=== PATIENT | male | born 1990 | race Caucasian/White ===

== ENCOUNTER 2022-11-01 23:43 | Emergency (ER) | payer BC, SELFPAY ==
--- OUTSIDE RECORDS SUMMARY | 2022-11-01 23:50 | XMS REPORT | Continuity of Care Document ---
:[address] [facility] t Address [address] [place] [id number] Care Team Providers Name Role Phone Arron Bull Attending Clinician Unavailable Problems This patient has no known problems. Allergies, Adverse Reactions, Alerts This patient has no known allergies or adverse reactions. Medications This patient has no known medications. Procedures This patient has no known procedures. Encounters Start End Encounter Admission Attending Care Care Encounter Source Date/Time Date/Time Type Type Clinicians Facility Department ID 2022-08-05 Outpatient Bull, [facility] [id number] Common 11:44:03 Arron [facility] 2022-08-04 Outpatient Bull, [facility] [id number] Common 09:28:04 Arron [facility] 2022-06-06 Outpatient Bull, [facility] [id number] Common 08:49:03 Arron [facility] Results This patient has no known results.
[2022-11-02 01:00] LABS: SARS-COV-2 RT PCR NEGATIVE (NEGATIVE)
[2022-11-02 01:24] LABS: Urine Blood Negative (Negative); Urine Glucose Negative (Negative); Urine Protein Negative (Negative); Urine Specific Gravity 1.025 (1.005-1.030)
[2022-11-02 01:25] LABS: Absolute Lymphocytes (CBC) 2.8 K/uL (0.7-4.9); Hematocrit 41.6 % (39.6-49.0); Lymphocytes % 23.6 % (15.3-44.8); MCV 87.8 fL (80-100); MPV 7.8 fL (7.6-11.3); RBC Red Blood Cell Count 4.74 M/uL (4.33-5.43)
[2022-11-02 01:31] LABS: Protime INR 0.97
[2022-11-02 01:54] LABS: ALT/SGPT 57 U/L (16-61); AST/SGOT 25 U/L (15-37); Albumin 3.7 g/dL (3.4-5.0); Alkaline Phosphatase 87 U/L (45-117); BUN Blood Urea Nitrogen 10 mg/dL (7-18); Barbiturates NEGATIVE (NEGATIVE); Benzodiazepines NEGATIVE (NEGATIVE); Bicarbonate 28 mEq/L (21-32); Bilirubin Direct < 0.1 mg/dL (0-0.2); Bilirubin Total 0.3 mg/dL (0.2-1.0); Cocaine POSITIVE (NEGATIVE); Glomerular Filtration Rate 117 ml/min (=/>90); Glucose Level 109 mg/dL (74-106); METHAMPHETAM POSITIVE (NEGATIVE); Methadone NEGATIVE (NEGATIVE); Opiates NEGATIVE (NEGATIVE); Phencyclidine NEGATIVE (NEGATIVE); Potassium 3.5 mEq/L (3.5-5.1); Protein, Total 7.1 g/dL (6.4-8.2); Sodium Level 137 mEq/L (136-145); THC Cannibis NEGATIVE (NEGATIVE)
[2022-11-02] MEDS ORDERED: NA CHLORIDE 0.9% 1,000 ML ONE (02:26)
--- NOTE | 2022-11-02 03:21 | EDPHYS ---
Physician Documentation [facility] Name: Graham Bolaños Age: 32 yrs Sex: Male : 1990 Arrival Date: 11/01/2022 Time: 23:54 Bed 8 Private MD: ED Physician Eladio Boyd HPI: 11/02 00:10 This 32 yrs old Male presents to ER via EMS with complaints of Altered Mental Status. cp 00:10 The patient presents with confusion. cp 00:10 Onset: The symptoms/episode began/occurred at an unknown time. cp 00:10 Possible causes: drug use, amphetamines, reports last use was 2 days ago, prescribed cp medication Abilify. Associated signs and symptoms: Pertinent positives: cough, Pertinent negatives: abdominal pain, agitation, chest pain, combativeness, diaphoresis, headache, fever, homicidal ideation, suicidal ideation. Historical: - Allergies: 00:05 No Known Allergies; jb4 - Home Meds: 00:05 Abilify oral [Active]; jb4 - PMHx: 00:05 Schizophrenia; jb4 - Immunization history:: Adult Immunizations unknown. - Social history:: Smoking status: Patient denies any tobacco usage or history of. Patient uses alcohol, street drugs, Methamphetamine (Meth). ROS: 00:15 Constitutional: Negative for body aches, chills, fever, poor PO intake. cp 00:15 Eyes: Negative for injury, pain, redness, and discharge. cp 00:15 ENT: Negative for drainage from ear(s), ear pain, sore throat, difficulty swallowing, difficulty handling secretions. 00:15 Cardiovascular: Negative for chest pain, edema, palpitations. 00:15 Respiratory: Positive for cough, "sounds productive", Negative for shortness of breath, wheezing. 00:15 Abdomen/GI: Negative for abdominal pain, vomiting, diarrhea, constipation. Exam: 00:20 Constitutional: The patient appears in no acute distress, alert, awake, cp non-diaphoretic, non-toxic, well developed, well nourished, obese. 00:20 Head/Face: Normocephalic, atraumatic. cp 00:20 Eyes: Periorbital structures: appear normal, Pupils: equal, round, and reactive to light and accomodation, Extraocular movements: intact throughout, Conjunctiva: normal, no exudate, no injection, Sclera: no appreciated abnormality, Lids and lashes: appear normal, bilaterally. 00:20 ENT: External ear(s): are unremarkable, Ear canal(s): are normal, clear, TM's: dullness, bilaterally, Nose: is normal, Mouth: Lips: moist, Oral mucosa: moist, Posterior pharynx: is normal, airway is patent, no erythema, no exudate. 00:20 Neck: C-spine: vertebral tenderness, is not appreciated, crepitus, is not appreciated, ROM/movement: is normal, is supple, without pain, no range of motions limitations, no nuchal rigidity. 00:20 Chest/axilla: Inspection: normal. 00:20 Cardiovascular: Rate: tachycardic, Rhythm: regular. 00:45 ECG was reviewed by the Attending Physician. Vital Signs: 00:02 BP 118 / 69; Pulse 100; Resp 16; Temp 98.7(O); Pulse Ox 98% on R/A; Weight 139.71 kg jb4 (M); Height 6 ft. 0 in. (R); 02:08 BP 130 / 74; Pulse 107; Resp 16; Pulse Ox 99% on R/A; jb4 03:16 BP 108 / 58; Pulse 94; Resp 16; Pulse Ox 95% on R/A; jb4 00:02 Body Mass Index 41.77 (139.71 kg, 182.88 cm) 4 MDM: 11/01 23:55 Patient medically screened. 11/02 00:04 Order name: EKG; Complete Time: 00:05 11/02 00:04 Order name: Suicide Screening ([place]); Complete Time: 00:09 11/02 00:04 Order name: XRAY Chest (1 view) 11/02 00:04 Order name: EKG - Nurse/Tech; Complete Time: 00:47 11/02 00:05 Order name: CT Head Brain wo Cont 11/02 00:04 Order name: IV Saline Lock; Complete Time: 01:24 11/02 00:04 Order name: Labs collected and sent; Complete Time: 01:24 11/02 00:04 Order name: Urine Dipstick-Ancillary (obtain specimen); Complete Time: 01:24 11/02 00:04 Order name: Acetaminophen; Complete Time: :55 cp 11/02 00:04 Order name: ETOH Level; Complete Time: :55 cp 11/02 00:04 Order name: Hepatic Function; Complete Time: :55 cp 11/02 00:04 Order name: PT-INR; Complete Time: :55 cp 11/02 00:04 Order name: Ptt, Activated; Complete Time: :55 cp 11/02 00:04 Order name: Salicylate; Complete Time: :55 cp 11/02 00:04 Order name: COVID-19/FLU A+B; Complete Time: :55 cp 11/02 00:04 Order name: Basic Metabolic Panel; Complete Time: :55 cp 11/02 01:55 Interpretation: Normal except: GLUC 109. cp 11/02 00:04 Order name: CBC with Diff; Complete Time: :55 cp 11/02 01:55 Interpretation: Normal except: WBC 11.90. cp 11/02 00:04 Order name: Urine Drug Screen; Complete Time: :55 cp 11/02 01:55 Interpretation: Normal except: KALEB POSITIVE; METHAMPHETAMINE POSITIVE. cp 11/02 01:25 Order name: Urine Dipstick-Ancillary; Complete Time: :55 EDMS EC/19 00:45 Rate is 93 beats/min. Rhythm is regular. NE interval is normal. QRS interval is normal. cp QT interval is normal. T waves are Inverted in lead aVR. Interpreted by me. Reviewed by me. Administered Medications: 02:15 Drug: NS 0.9% IV 1000 ml Route: IV; Rate: 1 bolus; Site: right hand; jb4 Disposition Summary: 11/02/22 03:20 Discharge Ordered Location: Home ms3 Condition: Stable ms3 Diagnosis - Methamphetamine abuse ms3 - Cocaine abuse ms3 Followup: ms3 - With: Arron Bull DO - When: 2 - 3 days - Reason: Recheck today's complaints Forms: - Medication Reconciliation Form ms3 - Thank You Letter ms3 - Antibiotic Education ms3 - Prescription Opioid Use ms3 Signatures: Dispatcher [employer] EDMS David Roy PA PA cp Bryson, James, RN RN jb4 Eladio Boyd DO DO ms3 Corrections: (The following items were deleted from the chart) 03:21 03:20 Hypokalemia ms3 ms3
--- NOTE | 2022-11-02 03:21 | ER ---
Nurse's Notes [facility] Name: Graham Bolaños Age: 32 yrs Sex: Male : 1990 Arrival Date: 11/01/2022 Time: 23:54 Bed 8 Private MD: Diagnosis: Methamphetamine abuse;Cocaine abuse Presentation: 11/02 00:02 Chief complaint: EMS states: Pt was found wandering around the neighbor ann. Initially jb4 they called for SOB. Upon EMS arrival the pt reported being Schizophrenic and being on Abilify which causes him to have hallucinations. The pt reports wanting to come to the hospital to get his medications changed. Coronavirus screen: At this time, the client does not indicate any symptoms associated with coronavirus-19. Ebola Screen: No symptoms or risks identified at this time. Initial Sepsis Screen: Does the patient meet any 2 criteria? HR > 90 bpm. Yes Does the patient have a suspected source of infection? No. Patient's initial sepsis screen is negative. Risk Assessment: Do you want to hurt yourself or someone else? Patient reports no desire to harm self or others. Onset of symptoms was November 02, 2022. Transition of care: patient was not received from another setting of care. 00:02 Method Of Arrival: EMS: [facility] jb4 00:02 Acuity: [place] 2 jb4 Historical: - Allergies: 00:05 No Known Allergies; jb4 - Home Meds: 00:05 Abilify oral [Active]; jb4 - PMHx: 00:05 Schizophrenia; jb4 - Immunization history:: Adult Immunizations unknown. - Social history:: Smoking status: Patient denies any tobacco usage or history of. Patient uses alcohol, street drugs, Methamphetamine (Meth). Screenin:07 [facility] ED Fall Risk Assessment (Adult) History of falling in the last 3 months, jb4 including since admission No falls in past 3 months (0 pts) Confusion or Disorientation No (0 pts). Abuse screen: Denies threats or abuse. Nutritional screening: No deficits noted. Tuberculosis screening: No symptoms or risk factors identified. Assessment: 00:07 General: Appears in no apparent distress. comfortable, Behavior is calm, cooperative, jb4 appropriate for age. Pain: Denies pain. Neuro: Level of Consciousness is awake, alert, obeys commands, Oriented to person, place, time, situation. Cardiovascular: Patient's skin is warm and dry. Respiratory: Airway is patent Respiratory effort is even, unlabored, Respiratory pattern is regular, symmetrical. GI: No signs and/or symptoms were reported involving the gastrointestinal system. : No signs and/or symptoms were reported regarding the genitourinary system. EENT: No signs and/or symptoms were reported regarding the EENT system. Derm: Skin is intact, Skin is pink, warm \T\ dry. Musculoskeletal: Circulation, motion, and sensation intact. Range of motion: intact in all extremities. 01:39 Reassessment: Patient appears in no apparent distress at this time. Patient and/or jb4 family updated on plan of care and expected duration. Pain level reassessed. Patient is alert, oriented x 3, equal unlabored respirations, skin warm/dry/pink. 02:30 Reassessment: Patient appears in no apparent distress at this time. Patient and/or jb4 family updated on plan of care and expected duration. Pain level reassessed. Patient is alert, oriented x 3, equal unlabored respirations, skin warm/dry/pink. 03:16 Reassessment: Patient appears in no apparent distress at this time. Patient and/or jb4 family updated on plan of care and expected duration. Pain level reassessed. Patient is alert, oriented x 3, equal unlabored respirations, skin warm/dry/pink. Vital Signs: 00:02 BP 118 / 69; Pulse 100; Resp 16; Temp 98.7(O); Pulse Ox 98% on R/A; Weight 139.71 kg jb4 (M); Height 6 ft. 0 in. (R); 02:08 BP 130 / 74; Pulse 107; Resp 16; Pulse Ox 99% on R/A; jb4 03:16 BP 108 / 58; Pulse 94; Resp 16; Pulse Ox 95% on R/A; jb4 00:02 Body Mass Index 41.77 (139.71 kg, 182.88 cm) [facility] ED Course: 11/01 23:54 Patient arrived in ED. jb4 23:55 David Roy PA is PHCP. cp 23:55 Eladio Boyd DO is Attending Physician. cp 11/02 00:05 Triage completed. jb4 00:05 Arm band placed on right wrist. jb4 00:22 COVID-19/FLU A+B Sent. jb4 00:41 XRAY Chest (1 view) In Process Unspecified. EDMS 01:10 CT Head Brain wo Cont In Process Unspecified. EDMS 01:24 Acetaminophen Sent. jb4 01:24 Basic Metabolic Panel Sent. jb4 01:24 CBC with Diff Sent. jb4 01:24 ETOH Level Sent. jb4 01:24 Hepatic Function Sent. jb4 01:24 PT-INR Sent. jb4 01:24 Ptt, Activated Sent. jb4 01:24 Salicylate Sent. jb4 01:24 Urine Drug Screen Sent. jb4 01:39 Rolando Rodriguez, RN is Primary Nurse. jb4 03:19 Arron Bull DO is Referral Physician. ms3 Administered Medications: 02:15 Drug: NS 0.9% IV 1000 ml Route: IV; Rate: 1 bolus; Site: right hand; jb4 Outcome: 03:20 Discharge ordered by . ms3 Signatures: Dispatcher [employer] EDMS David Roy PA PA cp Bryson, James, RN RN jb4 Eladio Boyd DO DO ms3
--- NOTE | 2022-11-03 14:22 | RAD REPORT ---
EXAM DESCRIPTION: CT - Head Brain Wo Cont - 11/02/2022 6:24 am CLINICAL HISTORY: Confusion. TECHNIQUE: 5 mm axial images of the intracranial structures were obtained without intravenous contra st. Coronal and sagittal reformatted images were obtained. COMPARISON: None. DOSE OPTIMIZATION: This facility uses dose optimization techniques as appropriate to perform exams, including at least one of the following techniques: 1. Automated exposure control. 2. Adjustment of the mA and/or kV according to patient size (this includes techniques or standardized protocols for targeted exams where dose is matched to the indication/reason for exam, i.e. extremiti es or head). 3. Use of iterative reconstructive technique. FINDINGS: There is a moderate-sized scalp hematoma along the external convexity of the parietal bone s posteriorly and superiorly. There is no associated calvarial fracture. No abnormal acute extracerebral fluid collections are demonstrated. The cortical sulci, ventricles, and cisterns are within normal limits. There are no areas of altered attenuation to suggest acute hemorrhage, acute infarct, or mass lesio n. The visualized portions of the paranasal sinuses and mastoid air cells are clear. IMPRESSION: 1. Moderate-sized scalp hematoma along the parietal bones posteriorly and superiorly. 2. No acute intracranial abnormalities. Electronically signed by: Donte Escobar MD 11/02/2022 1:20 AM CDT Due to temporary technical issues with the PACS/Fluency reporting system, reports are being signed by the in house radiologists without review as a courtesy to insure prompt reporting. The interpreting radiologist is fully responsible for the content of the report.
--- NOTE | 2022-11-03 14:29 | RAD REPORT ---
EXAM DESCRIPTION: RAD - Chest Single View - 11/02/2022 12:39 am CLINICAL HISTORY: Cough. TECHNIQUE: AP portable chest x-ray upright on 11/02/2022, at 00: 34. COMPARISON: None. FINDINGS: Heart: Normal size and configuration. Mediastinal Structures: Normal and midline.. Lung [place]: No active disease. Pulmonary Vascularity: Normal. Pleural Space: No active disease. Bony Structures: Normal. IMPRESSION: Normal study. Electronically signed by: Donte Escobar MD 11/02/2022 12:51 AM CDT Due to temporary technical issues with the PACS/Fluency reporting system, reports are being signed by the in house radiologists without review as a courtesy to insure prompt reporting. The interpreting radiologist is fully responsible for the content of the report.
--- NOTE | 2022-11-03 17:38 | EKG ---
Test Date: 2022-11-02 Test Time: 00:41:17 Deck Steward: LUISITO MEASUREMENT RESULTS: Intervals: Rate: 93 DE: 132 QRSD: 88 QT: 352 QTc: 437 [place]: P: 58 DE: 132 QRS: 73 T: 47 INTERPRETIVE STATEMENTS: Normal sinus rhythm Normal ECG Compared to ECG 05/12/2013 17:18:56 Sinus tachycardia no longer present Electronically Signed On 11-03-22 17:35:44 CDT by Stanley Jade
== END 2022-11-02 03:43 | disposition home or self-care (01) ==
LOC: ER 23:43
DX: F15.10 Other stimulant abuse, uncomplicated (principal); F14.10 Cocaine abuse, uncomplicated; R41.82 Altered mental status, unspecified; R41.0 Disorientation, unspecified; R05.9 Cough, unspecified; F20.9 Schizophrenia, unspecified; Z20.822 Contact with and (suspected) exposure to COVID-19
CPT/HCPCS: 0240U; 36415; 70450; 71045; 80048; 80076; 80307; 81003; 85025; 85610; 85730; 93005; G0480; J7030

== ENCOUNTER 2022-11-03 12:09 | Emergency (ER) | payer SELFPAY ==
--- OUTSIDE RECORDS SUMMARY | 2022-11-03 12:12 | XMS REPORT | Continuity of Care Document ---
:1990 Author Organization [facility] t Address [address] [facility] [address] [place] [id number] Care Team Providers Name Role Phone Arron [...] Clinicians Facility Department ID 2022-08-05 Outpatient Bull, [facility] [id number] Common 11:44:03 [facility] 2022-08-04 Outpatient Jorgito [facility] [id number] Common 09:28:04 Arron [facility] 2022-06-06 Outpatient Bull [facility] [id number] Common 08:49:03 [facility] Results This patient has no known results.
[2022-11-03 13:16] LABS: Absolute Lymphocytes (CBC) 2.8 K/uL (0.7-4.9); Hematocrit 42.2 % (39.6-49.0); Lymphocytes % 29.2 % (15.3-44.8); MCV 89.6 fL (80-100); MPV 8.4 fL (7.6-11.3)
--- NOTE | 2022-11-03 13:54 | RAD REPORT ---
EXAM DESCRIPTION: Ferny Single View11/03/2022 1:45 pm CLINICAL HISTORY: Chest pain COMPARISON: November 02, 2022 FINDINGS: The lungs appear clear of acute infiltrate. The heart is normal size IMPRESSION: No acute abnormalities displayed
[2022-11-03 13:55] LABS: ALT/SGPT 67 U/L (16-61); AST/SGOT 40 U/L (15-37); Albumin 3.8 g/dL (3.4-5.0); Alkaline Phosphatase 76 U/L (45-117); BUN Blood Urea Nitrogen 7 mg/dL (7-18); Bicarbonate 23 mEq/L (21-32); Bilirubin Total 0.4 mg/dL (0.2-1.0); Glomerular Filtration Rate 122 ml/min (=/>90); Glucose Level 97 mg/dL (74-106); Magnesium 2.5 mg/dL (1.6-2.4); NT PRO-BNP 95 pg/mL (<125); Potassium 3.9 mEq/L (3.5-5.1); Protein, Total 7.3 g/dL (6.4-8.2); Sodium Level 136 mEq/L (136-145); Troponin High Sensitivity 4.8 pg/mL (<58.9)
[2022-11-03 13:55] LABS: Protime INR 1.05
[2022-11-03 13:56] LABS: Bilirubin Direct < 0.1 mg/dL (0-0.2)
--- NOTE | 2022-11-03 14:23 | ER ---
Nurse's Notes [facility] Name: Graham Bolaños Age: 32 yrs Sex: Male : 1990 Arrival Date: 11/03/2022 Time: 12:11 Bed 3 Private MD: Diagnosis: Bipolar disorder, unspecified;Palpitations;Schizophrenia, unspecified Presentation: 11/03 12:44 Chief complaint: Patient states: Palpitations, CP, and anxiety that began this morning. vg1 Pt denies NV, pt appears to be drowsy. Coronavirus screen: Vaccine status: Patient reports receiving the 2nd dose of the covid vaccine. Client denies travel out of the [place] in the last 14 days. Ebola Screen: Patient negative for fever greater than or equal to 101.5 degrees Fahrenheit, and additional compatible Ebola Virus Disease symptoms Patient denies exposure to infectious person. Patient denies travel to an Ebola-affected area in the 21 days before illness onset. Initial Sepsis Screen: Does the patient meet any 2 criteria? No. Patient's initial sepsis screen is negative. Does the patient have a suspected source of infection? No. Patient's initial sepsis screen is negative. Risk Assessment: Do you want to hurt yourself or someone else? Patient reports no desire to harm self or others. Onset of symptoms was November 03, 2022. 12:44 Method Of Arrival: EMS: [facility] vg1 12:44 Acuity: [place] 3 vg1 Triage Assessment: 12:46 General: Appears in no apparent distress. uncomfortable, Behavior is cooperative, vg1 drowsy. Pain: Complains of pain in chest Pain does not radiate. Pain currently is 5 out of 10 on a pain scale. Pain began this morning. EENT: No signs and/or symptoms were reported regarding the EENT system. Neuro: Level of Consciousness is awake, alert, obeys commands, Oriented to person, place, time, situation. Cardiovascular: Patient's skin is warm and dry. Respiratory: Airway is patent Respiratory effort is even, unlabored. GI: No signs and/or symptoms were reported involving the gastrointestinal system. : No signs and/or symptoms were reported regarding the genitourinary system. Derm: Skin is pink, warm \T\ dry. Musculoskeletal: Circulation, motion, and sensation intact. Historical: - Allergies: 12:46 No Known Allergies; vg1 - Home Meds: 12:46 Abilify oral [Active]; Hydroxyzine Oral [Active]; vg1 - PMHx: 12:46 Schizophrenia; Anxiety; vg1 - Immunization history:: Client reports receiving the 2nd dose of the Covid vaccine. - Social history:: Smoking status: Patient reports the use of cigarette tobacco products, smokes one pack cigarettes per day. Patient uses alcohol, on a daily basis. street drugs, Methamphetamine (Meth). - Family history:: not pertinent. Screenin:49 [facility] ED Fall Risk Assessment (Adult) History of falling in the last 3 months, vg1 including since admission No falls in past 3 months (0 pts) Confusion or Disorientation No (0 pts) Intoxicated or Sedated No (0 pts) Impaired Gait No (0 pts) Mobility Assist Device Used No (0 pt) Altered Elimination No (0 pt) Score/Fall Risk Level 0 - 2 = Low Risk Oriented to surroundings, Maintained a safe environment, Educated pt \T\ family on fall prevention, incl call for assistance when getting out of bed, Assessed \T\ reinforced patient's understanding of fall precautions. Abuse screen: Denies threats or abuse. Denies injuries from another. Nutritional screening: No deficits noted. Tuberculosis screening: No symptoms or risk factors identified. Assessment: 12:49 Reassessment: SEE TRIAGE. vg1 12:50 Reassessment: [facility] CARLOS CARROLL AT BEDSIDE. vg1 14:01 Reassessment: Patient appears in no apparent distress at this time. No changes from vg1 previously documented assessment. Patient and/or family updated on plan of care and expected duration. Pain level reassessed. Patient is alert, oriented x 3, equal unlabored respirations, skin warm/dry/pink. Vital Signs: 12:44 BP 129 / 63; Pulse 80; Resp 18; Temp 98.4(O); Pulse Ox 95% on R/A; Weight 147.42 kg; vg1 Height 6 ft. 1 in. ; 13:30 BP 113 / 64; Pulse 80; Resp 18; Pulse Ox 97% on R/A; vg1 12:44 Body Mass Index 42.88 (147.42 kg, 185.42 cm) vg1 ED Course: 12:11 Patient arrived in ED. [facility] 12:11 David Whittaker MD is Attending Physician. [facility] 12:20 Sylvia Del Rosario, RN is Primary Nurse. vg1 12:46 Triage completed. vg1 12:46 Arm band placed on. vg1 12:49 Patient has correct armband on for positive identification. Bed in low position. Call vg1 light in reach. Side rails up X2. [place] [employer] AT BEDSIDE. 12:49 No provider procedures requiring assistance completed. vg1 13:17 Inserted saline lock: 22 gauge in right hand, using aseptic technique. Blood collected. vg1 13:47 XRAY Chest (1 view) In Process Unspecified. EDMS 14:22 Ilya Juan MD is Referral Physician. [facility] 14:34 IV discontinued. mb9 Administered Medications: 14:27 Not Given (Physician Discretion): Ativan IVP 1 mg IVP once mb9 14:28 Not Given (Physician Discretion): Ativan IVP 1 mg IVP once mb9 Outcome: 14:22 Discharge ordered by . [facility] 14:34 Discharged to Law Enforcement mb9 14:34 Condition: stable 14:34 Discharge instructions given to patient, Instructed on discharge instructions, follow up and referral plans. Demonstrated understanding of instructions, follow-up care. 14:35 Patient left the ED. mb9 Signatures: Dispatcher [employer] DANIEIA David Whittaker MD MD cha Garcia, Victoria, RN RN vg1 Renetta Tom, RN RN mb9
--- NOTE | 2022-11-03 14:23 | EDPHYS ---
Physician Documentation [facility] Name: Graham Bolaños Age: 32 yrs Sex: Male : 1990 Arrival Date: 11/03/2022 Time: 12:11 Bed 3 Private MD: ED Physician David Whittaker HPI: 11/03 12:38 This 32 yrs old Male presents to ER via Unassigned with complaints of monik PALPITATIONS, PSYCH ISSUES. 12:38 The patient presents to the emergency department with anxiety. Onset: The monik symptoms/episode began/occurred 5 day(s) ago. Past psychiatric history: Prior diagnosis: schizophrenia, Psychiatric medications include: UNSURE. The patient presents with a history of heart skipping beats. Context: The symptoms occur without known cause. Duration: The patient or guardian reports multiple episodes, with no pattern. Modifying factors: The symptoms are aggravated by nothing. The symptoms are alleviated by nothing. Associated signs and symptoms: The patient has no apparent associated signs or symptoms. Severity of symptoms: At their worst the symptoms were mild in the emergency department the symptoms are unchanged. Historical: - Allergies: 12:46 No Known Allergies; vg1 - Home Meds: 12:46 Abilify oral [Active]; Hydroxyzine Oral [Active]; vg1 - PMHx: 12:46 Schizophrenia; Anxiety; vg1 - Immunization history:: Client reports receiving the 2nd dose of the Covid vaccine. - Social history:: Smoking status: Patient reports the use of cigarette tobacco products, smokes one pack cigarettes per day. Patient uses alcohol, on a daily basis. street drugs, Methamphetamine (Meth). - Family history:: not pertinent. ROS: 12:38 Constitutional: Negative for fever, chills, and weight loss, Eyes: Negative for injury, monik pain, redness, and discharge, ENT: Negative for injury, pain, and discharge, Neck: Negative for injury, pain, and swelling, Respiratory: Negative for shortness of breath, cough, wheezing, and pleuritic chest pain, Abdomen/GI: Negative for abdominal pain, nausea, vomiting, diarrhea, and constipation, Back: Negative for injury and pain, : Negative for injury, bleeding, discharge, and swelling, MS/Extremity: Negative for injury and deformity. 12:38 Skin: Negative for injury, rash, and discoloration, Neuro: Negative for headache, weakness, numbness, tingling, and seizure, Psych: Negative for depression, anxiety, suicide ideation, homicidal ideation, and hallucinations, Allergy/Immunology: Negative for hives, rash, and allergies, Endocrine: Negative for neck swelling, polydipsia, polyuria, polyphagia, and marked weight changes. 12:38 Cardiovascular: Positive for palpitations. 13:26 Psych: Negative for auditory hallucinations, visual hallucinations, homicidal ideation, monik suicide gesture, suicidal ideation. Exam: 12:38 Constitutional: This is a well developed, well nourished patient who is awake, alert, monik and in no acute distress. Head/Face: Normocephalic, atraumatic. Eyes: Pupils equal round and reactive to light, extra-ocular motions intact. Lids and lashes normal. Conjunctiva and sclera are non-icteric and not injected. Cornea within normal limits. Periorbital areas with no swelling, redness, or edema. ENT: Nares patent. No nasal discharge, no septal abnormalities noted. Tympanic membranes are normal and external auditory canals are clear. Oropharynx with no redness, swelling, or masses, exudates, or evidence of obstruction, uvula midline. Mucous membranes moist. Neck: Trachea midline, no thyromegaly or masses palpated, and no cervical lymphadenopathy. Supple, full range of motion without nuchal rigidity, or vertebral point tenderness. No Meningismus. Chest/axilla: Normal chest wall appearance and motion. Nontender with no deformity. No lesions are appreciated. Cardiovascular: Regular rate and rhythm with a normal S1 and S2. No gallops, murmurs, or rubs. Normal PMI, no JVD. No pulse deficits. Respiratory: Lungs have equal breath sounds bilaterally, clear to auscultation and percussion. No rales, rhonchi or wheezes noted. No increased work of breathing, no retractions or nasal flaring. Abdomen/GI: Soft, non-tender, with normal bowel sounds. No distension or tympany. No guarding or rebound. No evidence of tenderness throughout. Back: No spinal tenderness. No costovertebral tenderness. Full range of motion. Male : Normal genitalia with no discharge or lesions. Skin: Warm, dry with normal turgor. Normal color with no rashes, no lesions, and no evidence of cellulitis. MS/ Extremity: Pulses equal, no cyanosis. Neurovascular intact. Full, normal range of motion. Neuro: Awake and alert, GCS 15, oriented to person, place, time, and situation. Cranial nerves II-XII grossly intact. Motor strength 5/5 in all extremities. Sensory grossly intact. Cerebellar exam normal. Normal gait. Psych: Awake, alert, with orientation to person, place and time. Behavior, mood, and affect are within normal limits. 13:25 ECG was reviewed by the Attending Physician. [facility] Vital Signs: 12:44 BP 129 / 63; Pulse 80; Resp 18; Temp 98.4(O); Pulse Ox 95% on R/A; Weight 147.42 kg; vg1 Height 6 ft. 1 in. ; 13:30 BP 113 / 64; Pulse 80; Resp 18; Pulse Ox 97% on R/A; vg1 12:44 Body Mass Index 42.88 (147.42 kg, 185.42 cm) vg1 MDM: 12:11 Patient medically screened. monik 13:29 Differential diagnosis: drug withdrawal. acute psychotic break, depression, arrythmia, monik dehydration. Data reviewed: vital signs, nurses notes, lab test result(s), EKG, radiologic studies, plain films. Consideration of Admission/Observation Escalation of care including admission/observation considered. I considered the following discharge prescriptions or medication management in the emergency department Medications were administered in the Emergency Department. See MAR. Independent interpretation of the following test(s) in the Emergency Department EKG: See my EKG interpretation above. Historians other than the Patient: Law enforcement: [employer]. Care significantly affected by the following chronic conditions: SCHIZOPHRENIA, ANXIETY. Counseling: I had a detailed discussion with the patient and/or guardian regarding: the historical points, exam findings, and any diagnostic results supporting the discharge/admit diagnosis, lab results, radiology results, the need for outpatient follow up, for definitive care, a fine grader, a psychiatrist. 11/03 12:12 Order name: Basic Metabolic Panel; Complete Time: 14:21 [facility] 11/03 12:12 Order name: CBC with Diff; Complete Time: 13:39 [facility] 11/03 12:12 Order name: LFT's; Complete Time: 14:21 [facility] 11/03 12:12 Order name: Magnesium; Complete Time: 14:21 [facility] 11/03 12:12 Order name: NT PRO-BNP; Complete Time: 14:21 [facility] 11/03 12:12 Order name: Troponin HS; Complete Time: 14:21 [facility] 11/03 12:12 Order name: Acetaminophen; Complete Time: 14:21 monik 11/03 12:12 Order name: ETOH Level; Complete Time: 13:39 11/03 12:12 Order name: PT-INR; Complete Time: 14:21 [facility] 11/03 12:12 Order name: Ptt, Activated; Complete Time: 14:21 [facility] 11/03 12:12 Order name: Salicylate 11/03 12:12 Order name: XRAY Chest (1 view); Complete Time: 14:21 [facility] 11/03 12:12 Order name: EKG; Complete Time: 12:13 [facility] 11/03 12:12 Order name: Cardiac monitoring; Complete Time: 13:04 [facility] 11/03 12:12 Order name: EKG - Nurse/Tech; Complete Time: 13:04 [facility] 11/03 12:12 Order name: IV Saline Lock; Complete Time: 13:17 monik 11/03 12:12 Order name: Labs collected and sent; Complete Time: 13:17 11/03 12:12 Order name: O2 Per Protocol; Complete Time: 12:54 11/03 12:12 Order name: O2 Sat Monitoring; Complete Time: 12:54 [facility] 11/03 12:12 Order name: Suicide Screening ([place]); Complete Time: 12:52 [facility] EC:25 Rate is 93 beats/min. Rhythm is regular. QRS [place] is Normal. HI interval is normal. QRS monik interval is normal. QT interval is normal. No Q waves. T waves are Normal. No ST changes noted. Clinical impression: NSR w/ Non-specific ST/T Changes and No evidence of ischemia. Interpreted by me. Reviewed by me. Administered Medications: 14:27 Not Given (Physician Discretion): Ativan IVP 1 mg IVP once mb9 14:28 Not Given (Physician Discretion): Ativan IVP 1 mg IVP once mb9 Disposition Summary: 11/03/22 14:22 Discharge Ordered Location: Home monik Problem: new monik Symptoms: have improved monik Condition: Stable monik Diagnosis - Bipolar disorder, unspecified monik - Palpitations monik - Schizophrenia, unspecified monik Followup: monik - With: Private Physician - When: 2 - 3 days - Reason: Recheck today's complaints, Continuance of care, Re-evaluation by your physician Followup: monik - With: - When: 2 - 3 days - Reason: Recheck today's complaints, Re-evaluation by your physician Discharge Instructions: - Discharge Summary Sheet monik - Palpitations monik - Aspirin and Your Heart monik - Palpitations, [id number] monik - Managing Bipolar Disorder monik - Mixed Bipolar Disorder monik - Managing Anxiety, Adult monik Forms: - Medication Reconciliation Form monik - Thank You Letter monik - Antibiotic Education monik - Prescription Opioid Use monik Signatures: Dispatcher [employer] EDDavid Roman MD MD cha Garcia, Victoria RN RN vg1 Renetta Tom RN mb9 Corrections: (The following items were deleted from the chart) 14:34 12:12 Urine Dipstick-Ancillary ordered. monik mb9
[2022-11-03 15:47] VITALS: TEMP 98.4
[2022-11-03 15:48] VITALS: BP 113/64; O2SAT 97
--- NOTE | 2022-11-04 13:01 | EKG ---
Test Date: 2022-11-03 Test Time: 13:00:15 Director Surgical: ROGER MEASUREMENT RESULTS: Intervals: Rate: 93 NM: 148 QRSD: 86 QT: 342 QTc: 425 Stanley: P: 58 NM: 148 QRS: 60 T: 45 INTERPRETIVE STATEMENTS: Normal sinus rhythm Low voltage QRS Cannot rule out Anterior infarct, age undetermined Abnormal ECG Compared to ECG 11/02/2022 00:41:17 Low QRS voltage now present Myocardial infarct finding now present Electronically Signed On 11-04-22 12:58:25 CDT by Stanley Jade
== END 2022-11-03 14:35 | disposition home or self-care (01) ==
LOC: ER 12:09
DX: R00.2 Palpitations (principal); Z20.822 Contact with and (suspected) exposure to COVID-19; F20.9 Schizophrenia, unspecified; F31.9 Bipolar disorder, unspecified
CPT/HCPCS: 36415; 71045; 80048; 80076; 83735; 83880; 84484; 85025; 85610; 85730; 93005; G0480

== ENCOUNTER 2023-01-07 07:11 | Emergency (ER) | payer OTHER ==
--- OUTSIDE RECORDS SUMMARY | 2023-01-07 07:14 | XMS REPORT | Continuity of Care Document ---
:1990 Author Organization [facility] t Address [address] [place] [id number] Care Team Providers Name Role Phone Arron [...] Type Clinicians Facility Department ID 2022-08-05 Outpatient Bull [facility] [id number] Common 11:44:03 [facility] 2022-08-04 Outpatient Jorgito [facility] [id number] Common 09:28:04 Arron [facility] 2022-06-06 Outpatient Jorgito [facility] [id number] Common 08:49:03 [facility] Results This patient has no known results.
[2023-01-07] MEDS ORDERED: haloperidoL 5 MG TAB PO ONE (08:00)
--- NOTE | 2023-01-07 09:41 | EDPHYS ---
Physician Documentation [facility] Name: Graham Bolaños Age: 32 yrs Sex: Male : 1990 Arrival Date: 01/07/2023 Time: 07:11 Bed 19 Private MD: ED Physician Alfonso Louie HPI: 01/07 07:22 This 32 yrs old Male presents to ER via EMS with complaints of concern for bs3 nitroglycerin on foot. 07:22 32yo hx of polysubstance abuse, schizophrenia, was [facility] in [facility] where he went yesterday as he was concerned he was exposed to nitroglycerin bomb material at his house before going there yesterday. He denies current methamphetamine use. per his mom she is worried about him and wants him to go to [facility]. Historical: - Allergies: 07:16 No Known Allergies; ap3 - PMHx: 07:16 Anxiety; Schizophrenia; ap3 - Immunization history:: Adult Immunizations up to date. - Social history:: Smoking status: Patient reports the use of cigarette tobacco products, smokes one pack cigarettes per day. ROS: 07:22 Constitutional: Negative for fever, chills bs3 07:22 All other systems are negative. Exam: 07:22 Constitutional: This is a well developed, well nourished patient who is awake, alert, bs3 and in no acute distress. Head/Face: Normocephalic, atraumatic. Eyes: Pupils equal round and reactive to light, extra-ocular motions intact. Lids and lashes normal. ENT: mmm, no posterior phyarngeal erythema Neck: Trachea midline, no thyromegaly, no neck stiffness Chest/axilla: Normal chest wall appearance and motion. Nontender with no deformity. No lesions are appreciated. Cardiovascular: Regular rate and rhythm with a normal S1 and S2. symmetric pulses in upper extremities Respiratory: Lungs have equal breath sounds bilaterally, clear to auscultation, no respiratory distress 07:[address] elevation or depression qtc 406 Vital Signs: 07:17 BP 115 / 93; Pulse 93; Resp 18; Temp 97.7; Pulse Ox 96% ; Pain 0/10; ll1 11:42 Weight 122.47 kg; Height 6 ft. 0 in. ; ap3 11:42 Body Mass Index 36.62 (122.47 kg, 182.88 cm) ap3 07:17 Pain Scale: Adult ll1 MDM: 07:20 Patient medically screened. 3 07:22 Differential diagnosis: per EMS/Fire, no evidence of bomb/nitroglycerin material in the 3 yard, he is acutely paranoid with possible decompensated schizophrenia and anioxus, will give haldol, will screen and call [facility] given family is worried about his mental health. Here he is pleasant, but no si/hi, if he decides to leave I cannot keep him here. Data reviewed: vital signs. 08:49 ED course: I discussed the case with the patient's mother who notes that he has been [facility] calling the police multiple times and is acutely paranoid she does not feel safe taking him home he is followed by [facility] will call [facility]. 01/07 07:21 Order name: Acetaminophen; Complete Time: 11:32 [facility] 01/07 07:21 Order name: Basic Metabolic Panel; Complete Time: 11:32 [facility] 01/07 07:21 Order name: CBC with Diff; Complete Time: 11:32 [facility] 01/07 07:21 Order name: ETOH Level; Complete Time: 11:32 [facility] 01/07 07:21 Order name: Hepatic Function; Complete Time: 11:32 [facility] 01/07 07:21 Order name: PT-INR; Complete Time: 11:32 [facility] 01/07 07:21 Order name: Ptt, Activated; Complete Time: 11:32 [facility] 01/07 07:21 Order name: Salicylate; Complete Time: 11:32 [facility] 01/07 07:21 Order name: EKG; Complete Time: 07:22 [facility] 01/07 07:21 Order name: EKG - Nurse/Tech; Complete Time: 07:27 [facility] 01/07 07:21 Order name: IV Saline Lock; Complete Time: 09:42 [facility] 01/07 07:21 Order name: Labs collected and sent; Complete Time: 09:42 [facility] 01/07 07:52 Order name: Labs - recollect needed: recollect green and lavender top; Complete Time: bd 09:42 01/07 07:53 Order name: Labs - recollect needed: recollect blue top also; Complete Time: 09:42 01/07 08:28 Order name: Labs - recollect needed: recollect green and blue top; Complete Time: 09:42 bd Administered Medications: 08:40 Drug: Haloperidol PO 5 mg Route: PO; ap3 10:09 Follow up: Response: No adverse reaction ap3 Disposition Summary: 01/07/23 09:41 Transfer Ordered Transfer Location: Psych Facility bs3 Reason: Higher level of care bs3 Condition: Fair bs3 Problem: new bs3 Symptoms: have improved bs3 Accepting Physician: psych(01/07/23 14:00) ap3 Diagnosis - Schizophrenia, unspecified bs3 Forms: - Medication Reconciliation Form bs3 - SBAR form bs3 Signatures: Dispatcher [employer] EDMS Crystal Alfaro Amanda, RN RN ap3 lAfonso Louie MD MD bs3 Corrections: (The following items were deleted from the chart) 07:26 07:22 This 32 yrs old Male presents to ER via EMS with complaints of concern bs3 for nitroglycerin on hands. bs3 07:27 07:21 Suicide Screening ([place]) ordered. bs3 ll1 14:00 09:41 psych bs3 ap3
--- NOTE | 2023-01-07 09:41 | ER ---
Nurse's Notes [facility] Name: Graham Bolaños Age: 32 yrs Sex: Male : 1990 Arrival Date: 01/07/2023 Time: 07:11 Bed 19 Private MD: Diagnosis: Schizophrenia, unspecified Presentation: 01/07 07:17 Chief complaint: Patient states: Believes he was exposed to nitroglycerin while digging ap3 in his front yard yesterday. At [facility] for meth use, history of schizophrenia. EMS states: [facility]SS. Coronavirus screen: Client denies travel out of the [place] in the last 14 days. At this time, the client does not indicate any symptoms associated with coronavirus-19. Ebola Screen: Patient denies travel to an Ebola-affected area in the 21 days before illness onset. Initial Sepsis Screen: Does the patient meet any 2 criteria? No. Patient's initial sepsis screen is negative. Does the patient have a suspected source of infection? No. Patient's initial sepsis screen is negative. Risk Assessment: Do you want to hurt yourself or someone else? Patient reports no desire to harm self or others. Onset of symptoms was January 06, 2023. 07:17 Method Of Arrival: EMS: [facility] ap3 07:17 Acuity: [place] 3 ap3 13:51 Chief complaint:. ap3 13:51 Note bedside report given to EMS. ap3 Triage Assessment: 07:19 General: Appears uncomfortable, Behavior is cooperative, appropriate for age, anxious. ap3 Pain: Denies pain. Neuro: Reports numbness tingling all over. Historical: - Allergies: 07:16 No Known Allergies; ap3 - PMHx: 07:16 Anxiety; Schizophrenia; ap3 - Immunization history:: Adult Immunizations up to date. - Social history:: Smoking status: Patient reports the use of cigarette tobacco products, smokes one pack cigarettes per day. Screenin:44 [facility] ED Fall Risk Assessment (Adult) History of falling in the last 3 months, ap3 including since admission No falls in past 3 months (0 pts) Confusion or Disorientation No (0 pts) Intoxicated or Sedated No (0 pts) Impaired Gait No (0 pts) Mobility Assist Device Used No (0 pt) Altered Elimination No (0 pt). Abuse screen: Denies threats or abuse. Nutritional screening: No deficits noted. Tuberculosis screening: No symptoms or risk factors identified. Assessment: 08:40 General: phoned lab to assist in labdraw. ap3 08:43 General: mother is at the bedside visiting patient. ap3 08:44 General: Appears distressed, Behavior is anxious. Neuro: Level of Consciousness is ap3 awake, alert, obeys commands, Oriented to person, place. Cardiovascular: Patient's skin is warm and dry. Respiratory: Airway is patent Respiratory effort is even, unlabored, Respiratory pattern is regular, symmetrical. 09:12 General: patient states "I'm radioactive". ap3 09:45 General: patient states "i need to smoke, i'm going to flip". patient educated on smoke ap3 free facility status and offered nicotine patch. patient refused nicotine patch at this time. . 10:19 General: patient pacing the room. provider and charge nurse notified.. ap3 Vital Signs: 07:17 BP 115 / 93; Pulse 93; Resp 18; Temp 97.7; Pulse Ox 96% ; Pain 0/10; ll1 11:42 Weight 122.47 kg; Height 6 ft. 0 in. ; ap3 11:42 Body Mass Index 36.62 (122.47 kg, 182.88 cm) ap3 07:17 Pain Scale: Adult ll1 ED Course: 07:14 Patient arrived in ED. bd 07:17 Arm band placed on Patient placed in an exam room, on a stretcher. ap3 07:19 Triage completed. ap3 07:20 Alfonso Louie MD is Attending Physician. bs3 07:25 pt mom.....[phone]. bd 07:34 Kailee Ervin, [place] is Primary Nurse. ap3 07:42 Missed attempt(s): 20 gauge in right forearm. rs5 08:45 Patient has correct armband on for positive identification. Bed in low position. Call ap3 light in reach. Side rails up X 1. Adult w/ patient. Pulse ox on. NIBP on. 09:42 Initial lab(s) drawn, by me, sent to lab. Inserted saline lock: 20 gauge in right em1 forearm, using aseptic technique. Blood collected. 10:19 IV discontinued, intact, bleeding controlled, No redness/swelling at site. Pressure ap3 dressing applied. 10:45 faxed chart to [facility]. bd 13:59 No provider procedures requiring assistance completed. ap3 Administered Medications: 08:40 Drug: Haloperidol PO 5 mg Route: PO; ap3 10:09 Follow up: Response: No adverse reaction ap3 Medication: 08:44 VIS not applicable for this client. ap3 Outcome: 09:41 ER care complete, transfer ordered by . bs3 13:59 Transferred by ground EMS Note: [facility] ap3 13:59 Condition: good 13:59 Discharge instructions given to patient, Instructed on the need for transfer. 14:00 Patient left the ED. ap3 Signatures: Crystal Alfaro Eric em1 Kailee Ervin RN RN ap3 Oralia Orr RN RN ll1 Alfonso Louie MD MD bs3 German Mendoza rs5 Corrections: (The following items were deleted from the chart) 07:22 07:17 BP 115 / 93; Pulse 93bpm; Resp 18bpm; Pulse Ox 93%; Temp 97.7F; Pain 0/10, Adult; ll1 ap3
[2023-01-07 09:57] LABS: Absolute Lymphocytes (CBC) 2.1 K/uL (0.7-4.9); Hematocrit 45.6 % (39.6-49.0); Lymphocytes % 21.8 % (15.3-44.8); MCV 88.7 fL (80-100); MPV 8.2 fL (7.6-11.3); RBC Red Blood Cell Count 5.14 M/uL (4.33-5.43)
[2023-01-07 10:09] LABS: Protime INR 1.05
[2023-01-07 10:13] LABS: ALT/SGPT 61 U/L (16-61); AST/SGOT 25 U/L (15-37); Alkaline Phosphatase 87 U/L (45-117); BUN Blood Urea Nitrogen 7 mg/dL (7-18); Bicarbonate 27 mEq/L (21-32); Bilirubin Direct 0.1 mg/dL (0-0.2); Bilirubin Indirect, Calculated 0.4 mg/dL (0.2-0.8); Bilirubin Total 0.5 mg/dL (0.2-1.0); Glomerular Filtration Rate 104 ml/min (=/>90); Glucose Level 96 mg/dL (74-106); Potassium 3.7 mEq/L (3.5-5.1); Protein, Total 7.6 g/dL (6.4-8.2); Sodium Level 140 mEq/L (136-145)
[2023-01-07 14:31] VITALS: BP 115/93; TEMP 97.7; O2SAT 96
--- NOTE | 2023-01-08 05:35 | EKG ---
Test Date: 2023-01-07 Test Time: 07:23:52 Molding Press Operator: RUTH MEASUREMENT RESULTS: Intervals: Rate: 84 UT: 140 QRSD: 82 QT: 344 QTc: 406 [place]: P: 56 UT: 140 QRS: 37 T: 41 INTERPRETIVE STATEMENTS: Normal sinus rhythm Normal ECG Compared to ECG 11/03/2022 13:00:15 Myocardial infarct finding no longer present Electronically Signed On 01-08-23 05:33:37 CDT by Bakari Agrawal
== END 2023-01-07 14:00 ==
LOC: ER 07:11
DX: F20.9 Schizophrenia, unspecified (principal); F17.210 Nicotine dependence, cigarettes, uncomplicated
CPT/HCPCS: 85025; 80048; 36415; 85610; 80076; 85730; G0480 ×3; 93005

== ENCOUNTER → 2023-10-13 | Emergency (ER) | payer OTHER ==
[~2023-10-13] MED LIST: FLUORESCEIN SODIUM 1 MG/WRAP ONE; TETRACAINE HCL 0.5% 4ML OPTH ONE
--- OUTSIDE RECORDS SUMMARY | 2023-10-13 13:57 | XMS REPORT | Continuity of Care Document ---
Author Name Unknown Address [address] [place] [address] [facility] thconnect Address [address] [place] [address] Care Team Providers Care Communication Center Coordinator Name Role Phone Arron Bull Primary Care Physician [phone] Arron Bull Attending Clinician Unavailable ZHAO VARGHESE Attending Clinician Unavail able ZHAO VARGHESE Attending Clinician Unavail Zhao Thompson MD Attending Clinician [phone] Payers Payer Name Policy Type Policy Number Effective Date Expirati on Date Source [facility] DUAL COMP HMO D SNP [id number] 2023 00:00:00 Allergies, Adverse Reactions, Alerts Allergy Name Allergy Type Status Severity Reaction(s) Onset Date Inactive Date Treating Clinician Comments Source NO KNOWN ALLERGIE S Drug Class Active [facility] Social History Social Habit Start Date Stop Date Quantity Comments Source Gender identity [facility] History of tobacco use Passive smoker [facility] History of Social function 2023-03-13 00:00:00 2023-03-13 00:00:00 [facility] Cigarettes smoked current (pack per day) - Reported 2023-03-13 00:00:00 2023-03-13 00:00:00 [facility] Tobacco use and exposure 2023-03-13 00:00:00 2023-03-13 00:00:00 Smokeless tobacco non-user [facility] Sex Assigned At 1990 00:00:00 1990 00:00:00 [facility] Smoking Status Start Date Stop Date Source Smokes tobacco daily 2023-03-13 00:00:00 [facility] Medications Ordered Medication Name Filled Medication Name Start Date Stop Date Current Medication? Ordering Clinician Indication Dosage Frequency Signature (SIG) Comments Components Source aripiprazol e (ABILIFY IM) 03-13 14:02: 47 Yes by Intramuscu lar route. [facility] aripiprazol e (ABILIFY IM) 03-13 14:02: 47 Yes by Intramuscu lar route. [facility] Vital Signs Vital Name Observation Time Observation Value Comments S helen Systolic blood pressure 2023-03-13 18:58:00 125 mm[Hg] [facility] Diastolic blood pressure 2023-03-13 18:58:00 87 mm[Hg] [facility] Heart rate 2023-03-13 18:58:00 118 /min [facility] Respiratory rate 2023-03-13 18:58:00 18 /min [facility] Body height 2023-03-13 18:58:00 185.4 cm [facility] Body weight 2023-03-13 18:58:00 125.828 kg [facility] BMI 2023-03-13 18:58:00 36.60 kg/m2 [facility] Oxygen saturation in Arterial blood by Pulse oximetry 2023-03-13 18:58:00 96 /min [facility] Encounters Start Date/Time End Date/Time Encounter Type Admission Type Attending Clinicians Care Facility Care Department Encounter ID Source 2023-05-06 12:45:00 [facility] [id number] [facility] 2023-02-23 13:16:00 [facility] [id number] [facility] 2023-02-19 11:59:00 [facility] [id number] [facility] 2022-08-05 11:44:03 [address] maza [facility] [id number] [facility] 2022-08-04 09:28:04 [facility] [id number] [facility] 2022-06-06 08:49:03 [facility] [id number] [facility] 2023-03-13 14:00:00 2023-03-13 16:39:26 Outpatient ZHAO ROSARIO [facility]ARD [facility] [id number] [facility] 2023-03-13 14:00:00 2023-03-13 16:39:26 Office Visit Zhao Varghese [facility] [id number] [facility]
--- NOTE | 2023-10-13 14:30 | EDPHYS ---
Physician Documentation [facility] Name: Graham Bolaños Age: 33 yrs Sex: Male : 1990 Arrival Date: 10/13/2023 Time: 13:54 Bed 11 Private MD: ED Physician Irma Bull HPI: 10/13 14:26 This 33 yrs old Male presents to ER via Ambulatory with complaints of Eye Problem. sp3 14:26 33-year-old male with history of anxiety and schizophrenia now presents ED with right sp3 eye pain and irritation since yesterday evening. Patient states today "light mom must of went off due to terrorists" causing damage to his eye. He denies any direct trauma, visual changes, double vision, or any other signs or symptoms of an ocular or other perspective. He denies headache, chest pain, neck pain, shortness of breath, back pain, abdominal pain, nausea, vomiting, diarrhea, or any other signs or symptoms on ROS at this time.. Historical: - Allergies: 14:02 Vicodin; as6 - PMHx: 14:02 Anxiety; Schizophrenia; as6 - PSHx: 14:02 None; as6 - Immunization history:: Adult Immunizations not up to date. - Social history:: Smoking status: Patient reports the use of cigarette tobacco products, smokes one pack cigarettes per day. ROS: 14:26 Constitutional: Negative for fever, chills, and weight loss, ENT: Negative for injury, sp3 pain, and discharge, Neck: Negative for injury, pain, and swelling, Cardiovascular: Negative for chest pain, palpitations, and edema, Respiratory: Negative for shortness of breath, cough, wheezing, and pleuritic chest pain, Abdomen/GI: Negative for abdominal pain, nausea, vomiting, diarrhea, and constipation, : Negative for injury, bleeding, discharge, and swelling, MS/Extremity: Negative for injury and deformity, Skin: Negative for injury, rash, and discoloration, Neuro: Negative for headache, weakness, numbness, tingling, and seizure, Allergy/Immunology: Negative for hives, rash, and allergies, Endocrine: Negative for neck swelling, polydipsia, polyuria, polyphagia, and marked weight changes, Hematologic/Lymphatic: Negative for swollen nodes, abnormal bleeding, and unusual bruising, 14:26 All other systems are negative, Exam: 14:27 Constitutional: This is a well developed, well nourished patient who is awake, alert, sp3 and in no acute distress. Head/Face: Normocephalic, atraumatic. ENT: Nares patent. No nasal discharge, no septal abnormalities noted. External auditory canals are clear. Oropharynx with no redness, swelling, or masses, exudates, or evidence of obstruction, uvula midline. Mucous membranes moist. Neck: Trachea midline, no thyromegaly or masses palpated, and no cervical lymphadenopathy. Supple, full range of motion without nuchal rigidity, or vertebral point tenderness. No Meningismus. Chest/axilla: Normal chest wall appearance and motion. Nontender with no deformity. No lesions are appreciated. Cardiovascular: Regular rate and rhythm with a normal S1 and S2. No gallops, murmurs, or rubs. Normal PMI, no JVD. No pulse deficits. Respiratory: Lungs have equal breath sounds bilaterally, clear to auscultation and percussion. No rales, rhonchi or wheezes noted. No increased work of breathing, no retractions or nasal flaring. Abdomen/GI: Soft, non-tender, with normal bowel sounds. No distension or tympany. No guarding or rebound. No evidence of tenderness throughout. Skin: Warm, dry with normal turgor. Normal color with no rashes, no lesions, and no evidence of cellulitis. MS/ Extremity: Pulses equal, no cyanosis. Neurovascular intact. Full, normal range of motion. Neuro: Awake and alert, GCS 15, oriented to person, place, time, and situation. Cranial nerves II-XII grossly intact. Motor strength 5/5 in all extremities. Sensory grossly intact. Cerebellar exam normal. Normal gait. 14:27 Psych: Patient does seem to have hallucinations of terrorists dropping light bombs however he is not suicidal, homicidal and does not appear to be responding to internal stimuli.. 14:28 Eyes: Mildly injected conjunctiva. Fluorescein stain demonstrates moderate-sized sp3 corneal abrasion on the right eye at approximately 9:00. Kayode-Pen demonstrates intraocular pressure of 7 on multiple readings. Katherine sign is negative. Extraocular movements are intact anterior chamber is clear. Pupils are equal round reactive light and left eye is normal.. Vital Signs: 14:00 BP 112 / 63; Pulse 104; Resp 18 S; Temp 98.4(TE); Pulse Ox 97% ; Weight 120.2 kg; as6 Height 6 ft. 0 in. (R); Pain 9/10; 14:00 Body Mass Index 35.94 (120.20 kg, 182.88 cm) as6 14:00 Pain Scale: Adult as6 MDM: 14:04 Patient medically screened. sp3 14:28 Data reviewed:. ED course: Patient has corneal abrasion. I am not highly suspicious for sp3 globe rupture, glaucoma, increased intraocular pressure given his readings, or any other ocular emergency. Will place him on antibiotics and have him follow-up with his PCP and/or ophthalmology.. Administered Medications: 14:21 Drug: Tetracaine Ophthalmic Drops 0.5 % 1 drops Ophthalmic once Route: Ophthalmic; cm10 Site: right eye; Disposition Summary: 10/13/23 14:29 Discharge Ordered Notes: Location: Home sp3 Condition: Stable sp3 Diagnosis - Corneal abrasion sp3 Followup: sp3 - With: Private Physician - When: Upon discharge from the Emergency Department - Reason: Continuance of care Discharge Instructions: - Discharge Summary Sheet sp3 Forms: - Medication Reconciliation Form sp3 - Thank You Letter sp3 - Antibiotic Education sp3 - Prescription Opioid Use sp3 - Patient Portal Instructions sp3 - Leadership Thank You Letter sp3 Prescriptions: - Maxitrol 3.5mg/mL-10,000 unit/mL-0.1 % Ophthalmic drops, suspension - instill 2 drop OPHTHALMIC route every 6 hours; 2 Each; Refills: 0, Product sp3 Selection Permitted Signatures: Irma Bull MD MD sp3 Deshawn Mcgovern, RN RN as6 Janell Cortez RN RN cm10
--- NOTE | 2023-10-13 14:30 | ER ---
Nurse's Notes [facility] Name: Graham Bolaños Age: 33 yrs Sex: Male : 1990 Arrival Date: 10/13/2023 Time: 13:54 Bed 11 Private MD: Diagnosis: Corneal abrasion Presentation: 10/13 14:00 Chief complaint: Patient states: "I think I have a torn coronia in my right eye" pt as6 denies any injury. Coronavirus screen: At this time, the client does not indicate any symptoms associated with coronavirus-19. Ebola Screen: No symptoms or risks identified at this time. Initial Sepsis Screen: Does the patient meet any 2 criteria? No. Patient's initial sepsis screen is negative. Does the patient have a suspected source of infection? No. Patient's initial sepsis screen is negative. Risk Assessment: Do you want to hurt yourself or someone else? Patient reports no desire to harm self or others. Onset of symptoms was October 13, 2023. 14:00 Acuity: SAGRARIO 4 as6 14:00 Method Of Arrival: Ambulatory as6 Triage Assessment: 14:03 General: Appears in no apparent distress. Behavior is calm, cooperative. Pain: as6 Complains of pain in right eye. Historical: - Allergies: 14:02 Vicodin; as6 - PMHx: 14:02 Anxiety; Schizophrenia; as6 - PSHx: 14:02 None; as6 - Immunization history:: Adult Immunizations not up to date. - Social history:: Smoking status: Patient reports the use of cigarette tobacco products, smokes one pack cigarettes per day. Screenin:31 [facility] ED Fall Risk Assessment (Adult) History of falling in the last 3 months, cm10 including since admission No falls in past 3 months (0 pts) Confusion or Disorientation No (0 pts) Intoxicated or Sedated No (0 pts) Impaired Gait No (0 pts) Mobility Assist Device Used No (0 pt) Altered Elimination No (0 pt) Score/Fall Risk Level 0 - 2 = Low Risk Oriented to surroundings, Maintained a safe environment, Hourly rounding (assess needs \\T\\ fall precautionary measures) done. Abuse screen: Denies threats or abuse. Denies injuries from another. Nutritional screening: No deficits noted. Tuberculosis screening: No symptoms or risk factors identified. Assessment: 14:28 General: Appears in no apparent distress. comfortable, Behavior is calm, cooperative. cm10 Pain: Complains of pain in right eye. Neuro: No deficits noted. Level of Consciousness is awake, alert, obeys commands, Oriented to person, place, time, situation. Cardiovascular: No deficits noted. Patient's skin is warm and dry. Respiratory: No deficits noted. Airway is patent Respiratory effort is even, unlabored, Respiratory pattern is regular, symmetrical. GI: No deficits noted. No signs and/or symptoms were reported involving the gastrointestinal system. EENT: Eyes are tearing on right eye Redness noted to right eye. Reports pain in right eye. Vital Signs: 14:00 BP 112 / 63; Pulse 104; Resp 18 S; Temp 98.4(TE); Pulse Ox 97% ; Weight 120.2 kg; as6 Height 6 ft. 0 in. (R); Pain 9/10; 14:00 Body Mass Index 35.94 (120.20 kg, 182.88 cm) as6 14:00 Pain Scale: Adult as6 ED Course: 13:56 Patient arrived in ED. kj1 13:59 Irma Bull MD is Attending Physician. sp3 14:02 Triage completed. as6 14:03 Arm band placed on. as6 14:28 Janell Cortez, RN is Primary Nurse. cm10 14:31 Patient has correct armband on for positive identification. Bed in low position. Call cm10 light in reach. Provided Education on: ER process and procedures. . Cardiac monitoring not applicable on this patient. 14:31 No provider procedures requiring assistance completed. Patient did not have IV access cm10 during this emergency room visit. Administered Medications: 14:21 Drug: Tetracaine Ophthalmic Drops 0.5 % 1 drops Ophthalmic once Route: Ophthalmic; cm10 Site: right eye; Medication: 14:31 VIS not applicable for this client. cm10 Outcome: 14:29 Discharge ordered by . sp3 14:31 Discharged to home ambulatory, cm10 14:31 Condition: good 14:31 Discharge instructions given to patient, Instructed on discharge instructions, follow up and referral plans. medication usage, Demonstrated understanding of instructions, follow-up care, medications, Prescriptions given X 1, 14:49 Patient left the ED. cm10 Signatures: Lyndsay Limon kj1 Irma Bull MD MD sp3 Deshawn Mcgovern, [place] RN as6 Janell Cortez, RN RN cm10
[2023-10-13 15:26] VITALS: BP 112/63; TEMP 98.4; O2SAT 97
== END ==
LOC: ER 13:54
DX: S05.01XA Injury of conjunctiva and corneal abrasion without foreign body, right eye, initial encounter (principal); F17.210 Nicotine dependence, cigarettes, uncomplicated; Z88.5 Allergy status to narcotic agent

== ENCOUNTER → 2023-11-04 | Emergency (ER) | payer OTHER ==
--- OUTSIDE RECORDS SUMMARY | 2023-11-04 20:23 | XMS REPORT | Continuity of Care Document ---
Author Name Unknown Address [address] [place] [address] [facility] Address [address] [place] [address] Care Team Providers Care Community Associate Name Role Phone Arron Bull Primary Care Physician [phone] Arron Bull Attending Clinician Unavailable ZHAO VARGHESE Attending Clinician Unavail ZHAO Cardenas Attending Clinician Unavail Zhao Cardenas MD Attending Clinician [phone] Payers Payer Name Policy Type Policy Number Effective Date Expirati on Date Source [facility] DUAL COMP HMO D SNP [id number] 2023 00:00:00 Allergies, Adverse Reactions, Alerts Allergy Name Allergy Type Status Severity Reaction(s) Onset Date Inactive Date Treating Clinician Comments Source NO KNOWN ALLERGIE S Drug Class Active Univers [facility] Social History Social Habit Start Date Stop Date Quantity Comments Source Gender identity Univ [facility] Sexual orientation U [facility] History of tobacco use Passive smoker [facility] History of Social function 2023-03-13 00:00:00 2023-03-13 00:00:00 [facility] Cigarettes smoked current (pack per day) - Reported 2023-03-13 00:00:00 2023-03-13 00:00:00 [facility] Tobacco use and exposure 2023-03-13 00:00:00 2023-03-13 00:00:00 Smokeless tobacco non-user [facility] Sex Assigned At 1990 00:00:00 1990 00:00:00 [facility] Smoking Status Start Date Stop Date Source Smokes tobacco daily 2023-03-13 00:00:00 [facility] Medications Ordered Medication Name Filled Medication Name Start Date Stop Date Current Medication? Ordering Clinician Indication Dosage Frequency Signature (SIG) Comments Components Source aripiprazol e (ABILIFY IM) 03-13 14:02: 47 Yes by Intramuscu lar route. [facility] aripiprazol e (ABILIFY IM) 03-13 14:02: 47 Yes by Intramuscu lar route. [facility] Vital Signs Vital Name Observation Time Observation Value Comments S helen Systolic blood pressure 2023-03-13 18:58:00 125 mm[Hg] [facility] Diastolic blood pressure 2023-03-13 18:58:00 87 mm[Hg] [facility] Heart rate 2023-03-13 18:58:00 118 /min [facility] Respiratory rate 2023-03-13 18:58:00 18 /min [facility] Body height 2023-03-13 18:58:00 185.4 cm [facility] Body weight 2023-03-13 18:58:00 125.828 kg [facility] BMI 2023-03-13 18:58:00 36.60 kg/m2 [facility] Oxygen saturation in Arterial blood by Pulse oximetry 2023-03-13 18:58:00 96 /min [facility] Encounters Start Date/Time End Date/Time Encounter Type Admission Type Attending Clinicians Care Facility Care Department Encounter ID Source 2023-05-06 12:45:00 [facility] [id number] [facility] 2023-02-23 13:16:00 [facility] [id number] [facility] 2023-02-19 11:59:00 [facility] [id number] [facility] 2022-08-05 11:44:03 Outpatient Arron Bull [facility] [id number] [facility] 2022-08-04 09:28:04 [facility] [id number] [facility] 2022-06-06 08:49:03 [facility] [id number] [facility] 2023-03-13 14:00:00 2023-03-13 16:39:26 Outpatient ZHAO ROSARIO HOWARD [facility] [id number] [facility] 2023-03-13 14:00:00 2023-03-13 16:39:26 Office Visit Zhao Varghese [facility] [id number] [facility]
--- NOTE | 2023-11-04 20:37 | ER ---
Nurse's Notes [facility] Name: Graham Bolaños Age: 33 yrs Sex: Male : 1990 Arrival Date: 11/04/2023 Time: 20:20 Bed 12 Private MD: Arron Bull Diagnosis: Impacted cerumen, right ear Presentation: 11/03 20:30 Chief complaint: Patient states: I have a bug in my right ear. It is still alive. kd3 Coronavirus screen: unknown. Ebola Screen: No symptoms or risks identified at this time. Initial Sepsis Screen: Does the patient meet any 2 criteria? No. Patient's initial sepsis screen is negative. Does the patient have a suspected source of infection? No. Patient's initial sepsis screen is negative. Risk Assessment: Do you want to hurt yourself or someone else? Patient reports no desire to harm self or others. Onset of symptoms was November 04, 2023. 20:30 Method Of Arrival: Ambulatory kd3 20:30 Acuity: SAGRARIO 4 kd3 Triage Assessment: 20:31 General: Appears in no apparent distress. Behavior is calm, cooperative. Pain: Denies kd3 pain. EENT: Ear canal wax. Historical: - Allergies: 20:31 Vicodin; kd3 - PMHx: 20:31 Anxiety; Schizophrenia; kd3 - Immunization history:: Adult Immunizations up to date. - Social history:: Smoking status: Patient denies any tobacco usage or history of. Screenin:43 [facility] ED Fall Risk Assessment (Adult) History of falling in the last 3 months, kd3 including since admission No falls in past 3 months (0 pts) Confusion or Disorientation No (0 pts) Intoxicated or Sedated No (0 pts) Impaired Gait No (0 pts) Mobility Assist Device Used No (0 pt) Altered Elimination No (0 pt) Score/Fall Risk Level 0 - 2 = Low Risk Oriented to surroundings. Abuse screen: Denies threats or abuse. Denies injuries from another. Nutritional screening: No deficits noted. Tuberculosis screening: No symptoms or risk factors identified. Assessment: 20:43 General: Appears in no apparent distress. Behavior is calm, cooperative. kd3 Vital Signs: 20:30 BP 141 / 77; Pulse 88; Resp 16; Temp 98.2; Pulse Ox 100% ; Weight 113.4 kg; Height 6 kd3 ft. 0 in. ; 20:30 Body Mass Index 33.91 (113.40 kg, 182.88 cm) kd3 ED Course: 20:26 Patient arrived in ED. es 20:26 Arron Bull DO is Private Physician. es 20:26 William Mac MD is Attending Physician. sp4 20:30 Jodi Haines, [place] is Primary Nurse. kd3 20:31 Triage completed. kd3 20:31 Arm band placed on right wrist. kd3 20:35 Martha Agustin MD is Referral Physician. sp4 20:44 Patient has correct armband on for positive identification. Provided Education on: ear kd3 wax . 20:44 No provider procedures requiring assistance completed. Patient did not have IV access kd3 during this emergency room visit. Administered Medications: No medications were administered Medication: 20:44 VIS not applicable for this client. kd3 Outcome: 20:36 Discharge ordered by . sp4 20:44 Discharged to home ambulatory, kd3 20:44 Condition: stable 20:44 Discharge instructions given to patient, Instructed on discharge instructions, follow up and referral plans. Demonstrated understanding of instructions, follow-up care, 20:44 Patient left the ED. kd3 Signatures: Norah Caraballo Jodi Haines, ISRA[place] WOOD kd3 William Mac MD MD sp4
--- NOTE | 2023-11-04 20:37 | EDPHYS ---
Physician Documentation [facility] Name: Graham Bolaños Age: 33 yrs Sex: Male : 1990 Arrival Date: 11/04/2023 Time: 20:20 Bed 12 Private MD: Jorgito [facility] ED Physician William Mac HPI: 11/03 20:26 This 33 yrs old Male presents to ER via Unassigned with complaints of Foreign sp4 Body In Ear, Ear Pain. Historical: - Allergies: 20:31 Vicodin; kd3 - PMHx: 20:31 Anxiety; Schizophrenia; kd3 - Immunization history:: Adult Immunizations up to date. - Social history:: Smoking status: Patient denies any tobacco usage or history of. Vital Signs: 20:30 BP 141 / 77; Pulse 88; Resp 16; Temp 98.2; Pulse Ox 100% ; Weight 113.4 kg; Height 6 kd3 ft. 0 in. ; 20:30 Body Mass Index 33.91 (113.40 kg, 182.88 cm) kd3 MDM: 20:36 Patient medically screened. sp4 Administered Medications: No medications were administered Disposition Summary: 11/04/23 20:36 Discharge Ordered Problem: new sp4 Symptoms: have improved sp4 Condition: Stable sp4 Diagnosis - Impacted cerumen, right ear sp4 Followup: sp4 - With: Martha Agustin MD - When: 7 - 10 days - Reason: Recheck today's complaints Discharge Instructions: - Discharge Summary Sheet sp4 - Earwax Buildup, Adult sp4 Forms: - Patient Portal Instructions sp4 Signatures: Jodi Haines RN RN kd3 William Mac MD MD sp4
[2023-11-04 21:47] VITALS: BP 141/77; TEMP 98.2; O2SAT 100
== END ==
LOC: ER 20:20
DX: H61.21 Impacted cerumen, right ear (principal)